=== PATIENT | male | born 1990 | race Caucasian/White ===

== ENCOUNTER 2022-02-24 19:39 | Emergency (ER) | payer SELFPAY ==
[~2022-02-24] VITALS: Ht 175.2 cm; Wt 79.8 kg
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
[2022-02-24 20:03] VITALS: BP 118/69
== END 2022-02-24 20:03 | disposition home or self-care (01) ==
LOC: ER FS 19:43
DX: T63.301A Toxic effect of unspecified spider venom, accidental (unintentional), initial encounter (principal)
CPT/HCPCS: 99283

== ENCOUNTER 2022-04-22 20:13 | Inpatient (IN) | payer SELFPAY ==
[~2022-04-22] VITALS: Ht 177.8 cm; Wt 69.0 kg
[2022-04-22] MEDS ORDERED: fentaNYL INJ 100 MCG/2 ML AMP IVP ONE (20:30)
[2022-04-22 20:36] LABS: BASOPHILS # (AUTO) 0.1 10^3/uL (0.0-0.1); BASOPHILS % (AUTO) 0 % (0-10); EOSINOPHILS % (AUTO) 0 % (0-10); HEMATOCRIT 40 % (40-54); HEMOGLOBIN 14.1 g/dL (13.3-17.7); LYMPHOCYTES % (AUTO) 9 % (12-44); MEAN CORPUSCULAR HEMOGLOBIN 32 pg (25-34); MEAN CORPUSCULAR HGB CONC 35 g/dL (32-36); MEAN CORPUSCULAR VOLUME 91 fL (80-99); MEAN PLATELET VOLUME 10.8 fL (9.0-12.2); MONOCYTES # (AUTO) 2.3 10^3/uL (0.0-1.0); MONOCYTES % (AUTO) 10 % (0-12); NEUTROPHILS # (AUTO) 18.4 10^3/uL (1.8-7.8); NEUTROPHILS % (AUTO) 81 % (42-75); PLATELET COUNT 281 10^3/uL (130-400); WHITE BLOOD COUNT 22.9 10^3/uL (4.3-11.0)
[2022-04-22 20:51] LABS: ALBUMIN 4.3 GM/DL (3.2-4.5); BILIRUBIN,TOTAL 1.8 MG/DL (0.1-1.0); CREATININE SERUM 1.32 MG/DL (0.60-1.30); MAGNESIUM 2.1 MG/DL (1.6-2.4); POTASSIUM 3.7 MMOL/L (3.6-5.0); TOTAL PROTEIN 7.3 GM/DL (6.4-8.2)
[2022-04-22] MEDS ORDERED: LACTATED RINGERS 1,000 ML IV ONE ×2 (21:00)
[2022-04-22 21:26] LABS: BAND NEUTROPHILS 4 %; LYMPHOCYTES % (MANUAL) 9 %; MONOCYTES % (MANUAL) 5 %; NEUTROPHILS % (MANUAL) 82 %; RBC MORPH NORMAL
--- NOTE | 2022-04-22 21:41 | Diagnostic Imaging Report ---
PROCEDURE: CT thoracic spine without contrast. TECHNIQUE: Multiple axial computerized tomography images were obtained from the base of the thoracic spine to the vertex without intravenous contrast. Auto Exposure Controls were utilized during the CT exam to meet ALARA standards for radiation dose reduction. INDICATION: Upper back pain. COMPARISON: None FINDINGS: Static alignment of the thoracic spine is maintained. There is no significant anteroretrolisthesis. There is no evidence of jumped facets. Vertebral body heights are maintained as well. There is no acute fracture. No bony fragments are seen within the spinal canal. Mild multilevel intervertebral disc height loss is noted. Pre and paravertebral soft tissue structures are unremarkable. Included portions of the lungs are clear. IMPRESSION: 1. No acute fracture or dislocation of the thoracic spine. Dictated by: Dictated on workstation # [id number]
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
--- NOTE | 2022-04-22 22:49 | Diagnostic Imaging Report ---
PROCEDURE: CT pelvis with contrast. TECHNIQUE: Oral and intravenous contrast were administered with pelvic CT performed. Auto Exposure Controls were utilized during the CT exam to meet ALARA standards for radiation dose reduction. INDICATION: Rectal pain. COMPARISON: None FINDINGS: Included portions of the small bowel loops are nondistended. Normal appendix is identified. There is stranding of the perirectal fat within the lower posterior pelvis. There is some hyperenhancement of the rectal wall. There is no soft tissue emphysema or pneumoperitoneum. There is no pneumatosis. There is no free fluid nor loculated air-fluid collection. Urinary bladder is unopacified. No calculi are seen within the urinary bladder. No abnormal lymph nodes are identified. Osseous structures show no acute abnormalities. IMPRESSION: 1. Hyperenhancing thickened appearance to the rectal wall with mild stranding of the perirectal fat. Findings are nonspecific, but may be on the basis of proctitis. 2. There is no extraluminal gas or loculated air-fluid collection. Dictated by: Dictated on workstation # [id number]
[2022-04-22] MEDS ORDERED: cefTRIAXone 1 GM PRE-MIX 50 ML IV STA (23:04)
[2022-04-22] MEDS ORDERED: AZITHROMYCIN 250 MG TAB (ZITHROMAX) PO ONE (23:15)
[2022-04-23] VITALS (8 sets, daily range): BP systolic 101–119; BP diastolic 56–69
[2022-04-23 00:17] LABS: PROTHROMBIN TIME PATIENT 13.4 SEC (12.2-14.7)
[2022-04-23] MEDS ORDERED: NS IV 1000 ML 1,000 ML ONE (02:21)
[2022-04-23] MEDS ORDERED: fentaNYL INJ 100 MCG/2 ML AMP IV PRN (02:30)
[2022-04-23] MEDS: metroNIDAZOLE 500 MG/100 ML IVPB (PRE-MIX) IV SCH ×2 (02:31→15:44)
[2022-04-23] MEDS: NS IV 1000 ML 1,000 ML IV SCH ×3 (02:32→17:29)
[2022-04-23 02:38] LABS: BILIRUBIN,URINE NEGATIVE (NEGATIVE); CLARITY,URINE CLEAR; COLOR,URINE YELLOW; GLUCOSE, URINE (UA) NEGATIVE (NEGATIVE); KETONES,URINE 1+ (NEGATIVE); LEUKOCYTE ESTERASE ,URINE NEGATIVE (NEGATIVE); NITRITE,URINE NEGATIVE (NEGATIVE); PROTEIN,URINE NEGATIVE (NEGATIVE)
[2022-04-23 03:08] LABS: BACTERIA,URINE NEGATIVE /HPF
[2022-04-23 05:40] LABS: BASOPHILS # (AUTO) 0.1 10^3/uL (0.0-0.1); BASOPHILS % (AUTO) 1 % (0-10); EOSINOPHILS # (AUTO) 0.2 10^3/uL (0.0-0.3); EOSINOPHILS % (AUTO) 1 % (0-10); HEMATOCRIT 36 % (40-54); HEMOGLOBIN 12.2 g/dL (13.3-17.7); LYMPHOCYTES % (AUTO) 24 % (12-44); MEAN CORPUSCULAR HEMOGLOBIN 32 pg (25-34); MEAN CORPUSCULAR HGB CONC 34 g/dL (32-36); MEAN CORPUSCULAR VOLUME 92 fL (80-99); MEAN PLATELET VOLUME 11.1 fL (9.0-12.2); MONOCYTES # (AUTO) 1.2 10^3/uL (0.0-1.0); MONOCYTES % (AUTO) 9 % (0-12); NEUTROPHILS # (AUTO) 8.1 10^3/uL (1.8-7.8); NEUTROPHILS % (AUTO) 65 % (42-75); PLATELET COUNT 227 10^3/uL (130-400); WHITE BLOOD COUNT 12.5 10^3/uL (4.3-11.0)
[2022-04-23 05:57] LABS: ALBUMIN 3.5 GM/DL (3.2-4.5); POTASSIUM 3.7 MMOL/L (3.6-5.0)
[2022-04-23 05:58] LABS: CALCIUM 8.2 MG/DL (8.5-10.1)
[2022-04-23 06:00] LABS: TOTAL PROTEIN 6.1 GM/DL (6.4-8.2)
[2022-04-23 06:01] LABS: BILIRUBIN,TOTAL 1.7 MG/DL (0.1-1.0)
[2022-04-23 06:03] LABS: CREATININE SERUM 0.99 MG/DL (0.60-1.30)
[2022-04-23] MEDS ORDERED: CATHETER FLUSH 10 ML SYR IVP PRN (06:45)
[2022-04-23 08:04] LABS: BENZODIAZEPINES SCREEN URINE NEGATIVE (NEGATIVE); COCAINE SCREEN URINE NEGATIVE (NEGATIVE)
[2022-04-23 08:05] LABS: AMPHETAMINE SCREEN, URINE POSITIVE (NEGATIVE); BARBITURATE SCREEN URINE NEGATIVE (NEGATIVE); CANNABINOID SCREEN, URINE POSITIVE (NEGATIVE); METHADONE STAT NEGATIVE (NEGATIVE); OPIATE SCREEN URINE NEGATIVE (NEGATIVE); OXYCODONE STAT NEGATIVE (NEGATIVE); PROPOXYPHENE STAT NEGATIVE (NEGATIVE); TRICYCLIC ANTIDEPRESSANTS SCRE NEGATIVE (NEGATIVE)
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
[2022-04-23] MEDS: HYDROcodone/APAP 5 MG/325 MG (LORTAB) TAB PO PRN (17:39)
[2022-04-23] MEDS ORDERED: cefTRIAXone 1 GM/50 ML (PRE-MIX) IV SCH (21:00)
[2022-04-24] VITALS: BP 108/56
[2022-04-24] MEDS: NS IV 1000 ML 1,000 ML IV SCH ×3 (01:26→09:20)
[2022-04-24] MEDS: HYDROcodone/APAP 5 MG/325 MG (LORTAB) TAB PO PRN (01:34)
[2022-04-24 04:03] VITALS: BP 113/65
[2022-04-24] MEDS: metroNIDAZOLE 500 MG/100 ML IVPB (PRE-MIX) IV SCH (04:03)
[2022-04-24 06:41] LABS: HEMATOCRIT 34 % (40-54); HEMOGLOBIN 11.6 g/dL (13.3-17.7); MEAN CORPUSCULAR HEMOGLOBIN 32 pg (25-34); MEAN CORPUSCULAR HGB CONC 34 g/dL (32-36); MEAN CORPUSCULAR VOLUME 94 fL (80-99); MEAN PLATELET VOLUME 11.4 fL (9.0-12.2); PLATELET COUNT 191 10^3/uL (130-400); WHITE BLOOD COUNT 6.4 10^3/uL (4.3-11.0)
[2022-04-24 07:02] LABS: POTASSIUM 3.7 MMOL/L (3.6-5.0)
[2022-04-24 07:07] LABS: CREATININE SERUM 0.74 MG/DL (0.60-1.30)
[2022-04-24 08:13] VITALS: BP 109/67
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
[2022-04-24 12:00] VITALS: BP 107/62
[2022-04-24] MEDS ORDERED: DOXY100T2 PO (13:11)
[2022-04-24] MEDS ORDERED: BICT1TAB3 PO (13:11)
--- NOTE | 2022-04-24 13:15 | Discharge Inst-Simple/Standard ---
Discharge Inst-Standard Discharge Medications New, Converted or Re-Newed RX: Transmitted to Pharmacy Patient Instructions/Follow Up Plan of Care/Instructions/FU: Please continue to take your medications as written and keep your appointment with Dr. Underwood to follow-up this hospital stay. Please abstain from further substance abuse. Please remain in isolation until you are contacted by the state to leave isolation with your Monkeypox results. Activity as Tolerated: Yes Discharge Diet: No Restrictions Return to The Hospital For: Chest pain, shortness of breath, fever, weakness, if you feel you are getting worse. HERMAN ESTRELLA MD Apr 24, 2022 13:15
[2022-04-24 15:47] VITALS: BP 114/62
[2022-04-24 16:10] VITALS: BP 114/62
== END 2022-04-24 16:10 | disposition home or self-care (01) | DRG 558 ==
LOC: ER 20:13 → 4TH 04-23 01:08
PROVIDERS: ADMIT Internal Medicine; ATTEND Internal Medicine
PROC: 8E0ZXY6 Isolation (ICD-10-PCS; principal; 2022-04-23)
DX: M62.82 Rhabdomyolysis (principal); N17.9 Acute kidney failure, unspecified; R21 Rash and other nonspecific skin eruption; K62.89 Other specified diseases of anus and rectum; L73.9 Follicular disorder, unspecified; F15.10 Other stimulant abuse, uncomplicated; F12.10 Cannabis abuse, uncomplicated; F17.210 Nicotine dependence, cigarettes, uncomplicated; Z28.310 Unvaccinated for COVID-19; Z28.9 Immunization not carried out for unspecified reason; Z28.39 Other underimmunization status; M54.6 Pain in thoracic spine; Z88.8 Allergy status to other drugs, medicaments and biological substances
CPT/HCPCS: 36415; 72128; 72193; 80048; 80053; 80306; 81000; 82550; 83605; 83735; 85007; 85025; 85027; 85610; 85730; 86141; 86701; 87040; 87205; 87491; 87591

== ENCOUNTER → 2022-04-23 | Outpatient (CLI) | payer SELFPAY ==
[~2022-04-23] MED LIST: BICT1TAB3 PO; DOXY100T2 PO
== END ==
LOC: FNS 15:08
PROVIDERS: ATTEND Emergency Medicine
DX: Z02.89 Encounter for other administrative examinations (principal)

== ENCOUNTER 2022-06-02 18:31 | Emergency (ER) | payer SELFPAY ==
[~2022-06-02] VITALS: Ht 174 cm; Wt 72.5 kg
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
[2022-06-02] MEDS ORDERED: ONDANSETRON 4 MG/2 ML (SDV) Z0FRAN IVP ONE (18:45)
[2022-06-02] MEDS ORDERED: LACTATED RINGERS 1,000 ML IV ONE ×2 (18:45→20:00)
[2022-06-02 18:58] LABS: BASOPHILS # (AUTO) 0.1 10^3/uL (0.0-0.1); BASOPHILS % (AUTO) 0 % (0-10); EOSINOPHILS % (AUTO) 0 % (0-10); HEMATOCRIT 53 % (40-54); HEMOGLOBIN 18.9 g/dL (13.3-17.7); LYMPHOCYTES # (AUTO) 3.8 10^3/uL (1.0-4.0); LYMPHOCYTES % (AUTO) 14 % (12-44); MEAN CORPUSCULAR HEMOGLOBIN 32 pg (25-34); MEAN CORPUSCULAR HGB CONC 35 g/dL (32-36); MEAN CORPUSCULAR VOLUME 91 fL (80-99); MEAN PLATELET VOLUME 11.3 fL (9.0-12.2); MONOCYTES # (AUTO) 2.5 10^3/uL (0.0-1.0); MONOCYTES % (AUTO) 9 % (0-12); NEUTROPHILS # (AUTO) 21.1 10^3/uL (1.8-7.8); NEUTROPHILS % (AUTO) 76 % (42-75); PLATELET COUNT 310 10^3/uL (130-400); WHITE BLOOD COUNT 27.8 10^3/uL (4.3-11.0)
[2022-06-02 19:14] LABS: ALBUMIN 6.2 GM/DL (3.2-4.5); CHLORIDE 86 MMOL/L (98-107); POTASSIUM 3.8 MMOL/L (3.6-5.0); SODIUM 134 MMOL/L (135-145)
[2022-06-02 19:15] LABS: CALCIUM 11.8 MG/DL (8.5-10.1)
[2022-06-02 19:16] LABS: AMYLASE 155 U/L (25-125); GLUCOSE 129 MG/DL (70-105)
[2022-06-02 19:17] LABS: CARBON DIOXIDE 15 MMOL/L (21-32); TOTAL PROTEIN 11.3 GM/DL (6.4-8.2)
[2022-06-02 19:18] LABS: BILIRUBIN,TOTAL 1.8 MG/DL (0.1-1.0)
[2022-06-02 19:20] LABS: ALKALINE PHOSPHATASE 102 U/L (40-136); CREATININE SERUM 7.52 MG/DL (0.60-1.30); GFR ESTIMATED 9
[2022-06-02 19:21] LABS: ACETAMINOPHEN < 10 UG/ML (10-30)
[2022-06-02 19:23] LABS: ALANINE AMINOTRANSFERASE 41 U/L (0-55); MAGNESIUM 2.1 MG/DL (1.6-2.4)
[2022-06-02 19:25] LABS: LIPASE 37 U/L (8-78)
[2022-06-02] MEDS ORDERED: CEFEPIME INJECTION 1,000 MG in NS (IVPB) 50 ML IV ONE (20:00)
[2022-06-02 20:23] LABS: CREATINE KINASE 10464 U/L (30-200)
--- NOTE | 2022-06-02 20:34 | Diagnostic Imaging Report ---
INDICATION: Dehydration. Pain. EXAMINATION: Chest, 06/02/2022. FINDINGS: The cardiomediastinal silhouette is unremarkable. The pulmonary vasculature is within normal limits. The lungs and pleural spaces are clear. IMPRESSION: No evidence of an acute cardiopulmonary process. Dictated by: Dictated on workstation # [id number]
[2022-06-02 21:00] LABS: BUN/CREATININE RATIO 7
[2022-06-02 21:04] LABS: BAND NEUTROPHILS 3 %; LYMPHOCYTES % (MANUAL) 17 %; MONOCYTES % (MANUAL) 3 %; NEUTROPHILS % (MANUAL) 77 %
[2022-06-02 21:05] LABS: RBC MORPH NORMAL
--- NOTE | 2022-06-02 21:06 | Diagnostic Imaging Report ---
INDICATION: Dehydration. Overheated. Nausea. Constipation. EXAMINATION: CT chest, abdomen and pelvis without contrast, 06/02/2022. All CT scans use one or more of the following dose optimizing techniques: automated exposure control, MA and/or KvP adjustment based on patient size and exam type or iterative reconstruction. COMPARISON: 04/22/2022. FINDINGS: CT CHEST: There is no mediastinal or hilar adenopathy. There is no pericardial or pleural effusion. Lungs clear. No pneumothorax. There is no acute osseous abnormality. CT ABDOMEN/PELVIS: Nonopacified liver and spleen normal. Multiple stones noted within the gallbladder without surrounding inflammatory change. The adrenal glands and pancreas are normal. There is no nephrolithiasis or hydronephrosis. There are findings of moderate constipation. Appendix normal. No surrounding inflammatory change. There is no ascites. No free air. Nonspecific midline calcification noted within the penis. This may be of no significance. Correlate with any clinical symptoms. There is wall thickening of the urinary bladder which could be due to underdistention with cystitis not excluded. There is no acute osseous abnormality. IMPRESSION: 1. Wall thickening of the urinary bladder either due to underdistention or cystitis, correlate clinically. Otherwise incidental findings as detailed above. This includes changes of moderate constipation. 2. Cholelithiasis. 3. No acute process in the chest. Dictated by: Dictated on workstation # [id number]
[2022-06-02 21:20] LABS: BILIRUBIN,URINE 2+ (NEGATIVE); CLARITY,URINE CLOUDY; COLOR,URINE DARK YELLOW; GLUCOSE, URINE (UA) NEGATIVE (NEGATIVE); KETONES,URINE TRACE (NEGATIVE); LEUKOCYTE ESTERASE ,URINE NEGATIVE (NEGATIVE); NITRITE,URINE NEGATIVE (NEGATIVE); PROTEIN,URINE 3+ (NEGATIVE)
[2022-06-02 21:31] LABS: AMPHETAMINE SCREEN, URINE POSITIVE (NEGATIVE); BENZODIAZEPINES SCREEN URINE NEGATIVE (NEGATIVE); COCAINE SCREEN URINE NEGATIVE (NEGATIVE)
[2022-06-02 21:32] LABS: BARBITURATE SCREEN URINE NEGATIVE (NEGATIVE); CANNABINOID SCREEN, URINE NEGATIVE (NEGATIVE); METHADONE STAT NEGATIVE (NEGATIVE); OPIATE SCREEN URINE NEGATIVE (NEGATIVE); OXYCODONE STAT NEGATIVE (NEGATIVE); PROPOXYPHENE STAT NEGATIVE (NEGATIVE); TRICYCLIC ANTIDEPRESSANTS SCRE NEGATIVE (NEGATIVE)
[2022-06-02 21:50] LABS: BACTERIA,URINE LARGE /HPF; CALCIUM OXALATE CRYSTALS,UR FEW /LPF; RBC,URINE RARE /HPF
[2022-06-02] MEDS ORDERED: LORazepam INJ 2 MG/ML (ATIVAN) VIAL IVP ONE (22:00)
[2022-06-02 23:45] VITALS: BP 110/82
== END 2022-06-02 23:45 | disposition short-term general hospital (02) ==
LOC: EDUNIT# 18:31 → ER 18:33
DX: U07.1 COVID-19 (principal); A41.9 Sepsis, unspecified organism; N17.9 Acute kidney failure, unspecified; F15.90 Other stimulant use, unspecified, uncomplicated; M62.82 Rhabdomyolysis; Z28.310 Unvaccinated for COVID-19
CPT/HCPCS: 71045; 71250; 74176; 80053; 80306; 81000; 82150; 82550; 82553; 83605; 83690; 83735; 83874; 84145; 84484; 85007; 85027; 87040; 87088; 87636; 93005; 93041; 99284; G0480 ×2; 36415; 80320; 80329

== ENCOUNTER 2022-06-19 12:42 | Emergency (ER) | payer SELFPAY ==
[~2022-06-19] VITALS: Ht 175 cm; Wt 72.0 kg
[2022-06-19] MEDS ORDERED: LIDOCAINE/EPI 2% 1:100,00 (XYLOCAINE) 20 ML VIAL INJ ONE (13:30)
[2022-06-19] MEDS ORDERED: LIDOCAINE/EPI 2% 1:200,00 (XYLOCAINE) 10 ML VIAL ONE (13:37)
[2022-06-19 13:42] LABS: BASOPHILS # (AUTO) 0.1 10^3/uL (0.0-0.1); BASOPHILS % (AUTO) 1 % (0-10); EOSINOPHILS # (AUTO) 0.2 10^3/uL (0.0-0.3); EOSINOPHILS % (AUTO) 2 % (0-10); HEMATOCRIT 35 % (40-54); HEMOGLOBIN 11.8 g/dL (13.3-17.7); LYMPHOCYTES % (AUTO) 28 % (12-44); MEAN CORPUSCULAR HEMOGLOBIN 32 pg (25-34); MEAN CORPUSCULAR HGB CONC 34 g/dL (32-36); MEAN CORPUSCULAR VOLUME 94 fL (80-99); MEAN PLATELET VOLUME 10.9 fL (9.0-12.2); MONOCYTES # (AUTO) 0.7 10^3/uL (0.0-1.0); MONOCYTES % (AUTO) 10 % (0-12); NEUTROPHILS # (AUTO) 4.1 10^3/uL (1.8-7.8); NEUTROPHILS % (AUTO) 59 % (42-75); PLATELET COUNT 225 10^3/uL (130-400)
[2022-06-19 13:52] LABS: ALBUMIN 3.8 GM/DL (3.2-4.5)
[2022-06-19 13:53] LABS: POTASSIUM 3.4 MMOL/L (3.6-5.0)
[2022-06-19 13:54] LABS: CALCIUM 8.6 MG/DL (8.5-10.1)
[2022-06-19 13:55] LABS: TOTAL PROTEIN 6.4 GM/DL (6.4-8.2)
[2022-06-19 13:57] LABS: BILIRUBIN,TOTAL 0.8 MG/DL (0.1-1.0)
[2022-06-19 13:59] LABS: CREATININE SERUM 0.93 MG/DL (0.60-1.30)
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
[2022-06-19] MEDS ORDERED: LACTATED RINGERS 1,000 ML IV ONE (17:45)
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
[2022-06-19] MEDS ORDERED: ONDA4TAB11 PO (18:46)
[2022-06-19] MEDS ORDERED: AMOX1TAB12 PO (18:46)
[2022-06-19 19:15] VITALS: BP 136/88
== END 2022-06-19 19:15 | disposition home or self-care (01) ==
LOC: EDUNIT# 12:42 → ER 12:43
DX: S06.0X0A Concussion without loss of consciousness, initial encounter (principal); S01.01XA Laceration without foreign body of scalp, initial encounter; R74.8 Abnormal levels of other serum enzymes; F17.200 Nicotine dependence, unspecified, uncomplicated; Z28.310 Unvaccinated for COVID-19; Y04.8XXA Assault by other bodily force, initial encounter
CPT/HCPCS: 36415; 70450; 72125; 80053; 82550; 85025

== ENCOUNTER 2022-07-06 15:09 | Emergency (ER) | payer OTHER ==
[~2022-07-06 15:09] MED LIST changes: +AMOX1TAB12 PO; +ONDA4TAB11 PO
[2022-07-06 15:15] VITALS: BP 132/86
== END 2022-07-06 15:20 | disposition home or self-care (01) ==
LOC: EDUNIT# 15:09 → ER FS 15:11
DX: S01.01XD Laceration without foreign body of scalp, subsequent encounter (principal); Z28.310 Unvaccinated for COVID-19; X58.XXXD Exposure to other specified factors, subsequent encounter

== ENCOUNTER 2022-07-30 04:50 | Emergency (ER) | payer OTHER ==
[~2022-07-30] VITALS: Ht 175.3 cm; Wt 68.0 kg
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
--- NOTE | 2022-07-30 07:30 | Diagnostic Imaging Report ---
CLINICAL INDICATIONS: Patient status post fall with bilateral knee pain. EXAM: X-ray of both knees multiple views including sunrise view. COMPARISON: None. FINDINGS: X-ray of both knees show no acute fracture dislocation. There is no knee effusion. There is curvilinear sclerotic areas involving the distal femoral diametaphysis bilaterally which may be related to bone infarcts. [place] view of both patellas show them to be appropriately located. There is mild medial compartment narrowing bilaterally. IMPRESSION: 1: There is no acute fracture or dislocation involving both knees. 2: There are sclerotic areas involving the distal aspects of both femoral diametaphyseal regions which may represent bone infarcts. Dictated by: Dictated on workstation # [id number]
[2022-07-30 07:49] VITALS: BP 115/74
== END 2022-07-30 07:49 | disposition home or self-care (01) ==
LOC: EDUNIT# 04:50 → ER 04:52
DX: M25.562 Pain in left knee (principal); M25.561 Pain in right knee; F17.210 Nicotine dependence, cigarettes, uncomplicated; Z28.310 Unvaccinated for COVID-19; W23.0XXA Caught, crushed, jammed, or pinched between moving objects, initial encounter; W17.89XA Other fall from one level to another, initial encounter; Y93.01 Activity, walking, marching and hiking

== ENCOUNTER 2023-01-11 20:15 | Emergency (ER) | payer OTHER ==
[~2023-01-11] VITALS: Ht 175 cm; Wt 74.8 kg
[2023-01-11] MEDS ORDERED: KETOROLAC 30 MG/ML VIAL IVP STA (21:16)
[2023-01-11] MEDS ORDERED: ORPHENADRINE 60 MG/2 ML (NORFLEX) AMP (ED ONLY) IVP STA (21:16)
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
--- NOTE | 2023-01-11 21:35 | Diagnostic Imaging Report ---
PROCEDURE: CT head and maxillofacial without contrast. TECHNIQUE: Multiple contiguous axial images were obtained through the head and facial bones without the use of intravenous contrast. Auto Exposure Controls were utilized during the CT exam to meet ALARA standards for radiation dose reduction. 3D reformatted images of the facial bones were obtained on a separate workstation. INDICATION: Headache and face pain. No acute intracranial hemorrhage. The dumont-white matter differentiation is preserved. The ventricles and cortical sulci are normal. No intracranial mass or fluid collection. No midline shift or mass effect. The sella is normal. The cisterns are normal. The paranasal sinuses and mastoids are clear. The skull is intact. Acute displaced fracture of the right nasal bone. Leftward nasal septal deviation. No nasoseptal hematoma. The maxilla and zygomatic arch are normal. The pterygoid plates are intact. The mandible is intact. Multifocal periodontal disease with numerous dental cavities and periapical lucencies. IMPRESSION: Acute displaced fracture of the right nasal bone. No other facial fractures identified. No acute intracranial hemorrhage. No large vascular territory xie-white loss. No intracranial mass, midline shift, or hydrocephalus. Dictated by: Dictated on workstation # [id number]
[2023-01-11] MEDS ORDERED: TRM50T PO (21:51)
[2023-01-11] MEDS ORDERED: AMOX1TAB12 PO (21:51)
[2023-01-11] MEDS ORDERED: IBUP-1780 PO (21:51)
[2023-01-11] MEDS ORDERED: cefTRIAXone IV/IM 1,000 MG in NS (IVPB) 50 ML IV STA (21:55)
[2023-01-11 22:35] VITALS: BP 135/71
== END 2023-01-11 22:35 | disposition home or self-care (01) ==
LOC: EDUNIT# 20:15 → ER FS 20:15
DX: S02.2XXA Fracture of nasal bones, initial encounter for closed fracture (principal); K04.7 Periapical abscess without sinus; K02.9 Dental caries, unspecified; F17.210 Nicotine dependence, cigarettes, uncomplicated; Z28.310 Unvaccinated for COVID-19; X58.XXXA Exposure to other specified factors, initial encounter
CPT/HCPCS: 70450; 70486

== ENCOUNTER 2023-02-10 00:02 | Emergency (ER) | payer SELFPAY ==
[~2023-02-10] VITALS: Ht 172 cm; Wt 81.0 kg
[~2023-02-10 00:02] MED LIST changes: +IBUP-1780 PO; +TRM50T PO
[2023-02-10 00:05] VITALS: BP 125/76
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
== END 2023-02-10 00:30 | disposition home or self-care (01) ==
LOC: ER 00:02
DX: Z77.098 Contact with and (suspected) exposure to other hazardous, chiefly nonmedicinal, chemicals (principal); F17.210 Nicotine dependence, cigarettes, uncomplicated; Z28.310 Unvaccinated for COVID-19

== ENCOUNTER 2023-03-06 10:41 | Emergency (ER) | payer SELFPAY ==
[~2023-03-06] VITALS: Ht 172 cm; Wt 77.0 kg
[2023-03-06] MEDS ORDERED: morphine INJ 10 MG/ML 1ML (SYR OR VIAL) IVP STA ×3 (11:02→16:57)
[2023-03-06 11:14] LABS: BASOPHILS # (AUTO) 0.1 10^3/uL (0.0-0.1); BASOPHILS % (AUTO) 1 % (0-10); EOSINOPHILS % (AUTO) 0 % (0-10); HEMATOCRIT 38 % (40-54); HEMOGLOBIN 12.4 g/dL (13.3-17.7); LYMPHOCYTES # (AUTO) 6.2 10^3/uL (1.0-4.0); LYMPHOCYTES % (AUTO) 53 % (12-44); MEAN CORPUSCULAR HEMOGLOBIN 31 pg (25-34); MEAN CORPUSCULAR HGB CONC 33 g/dL (32-36); MEAN CORPUSCULAR VOLUME 94 fL (80-99); MEAN PLATELET VOLUME 9.7 fL (9.0-12.2); MONOCYTES # (AUTO) 0.9 10^3/uL (0.0-1.0); MONOCYTES % (AUTO) 8 % (0-12); NEUTROPHILS # (AUTO) 4.4 10^3/uL (1.8-7.8); NEUTROPHILS % (AUTO) 38 % (42-75); PLATELET COUNT 332 10^3/uL (130-400); WHITE BLOOD COUNT 11.7 10^3/uL (4.3-11.0)
[2023-03-06 11:23] LABS: ALBUMIN 3.3 GM/DL (3.2-4.5); CHLORIDE 99 MMOL/L (98-107); POTASSIUM 3.2 MMOL/L (3.6-5.0); SODIUM 134 MMOL/L (135-145)
[2023-03-06 11:25] LABS: CALCIUM 8.5 MG/DL (8.5-10.1)
[2023-03-06 11:26] LABS: AMPHETAMINE SCREEN, URINE POSITIVE (NEGATIVE); BARBITURATE SCREEN URINE NEGATIVE (NEGATIVE); BENZODIAZEPINES SCREEN URINE NEGATIVE (NEGATIVE); CANNABINOID SCREEN, URINE NEGATIVE (NEGATIVE); COCAINE SCREEN URINE NEGATIVE (NEGATIVE); METHADONE STAT NEGATIVE (NEGATIVE); OPIATE SCREEN URINE NEGATIVE (NEGATIVE); OXYCODONE STAT NEGATIVE (NEGATIVE); PROPOXYPHENE STAT NEGATIVE (NEGATIVE); TRICYCLIC ANTIDEPRESSANTS SCRE NEGATIVE (NEGATIVE)
[2023-03-06 11:26] LABS: GLUCOSE 102 MG/DL (70-105); TOTAL PROTEIN 6.7 GM/DL (6.4-8.2)
[2023-03-06 11:27] LABS: CARBON DIOXIDE 27 MMOL/L (21-32)
[2023-03-06 11:28] LABS: BILIRUBIN,TOTAL 0.4 MG/DL (0.1-1.0)
[2023-03-06 11:29] LABS: PROTHROMBIN TIME PATIENT 13.7 SEC (12.2-14.7)
[2023-03-06 11:30] LABS: ALKALINE PHOSPHATASE 104 U/L (40-136); CREATININE SERUM 0.81 MG/DL (0.60-1.30); GFR ESTIMATED 119
[2023-03-06 11:31] LABS: BUN/CREATININE RATIO 9
[2023-03-06 11:32] LABS: SALICYLATE < 5.0 MG/DL (5.0-20.0)
[2023-03-06 11:33] LABS: ALANINE AMINOTRANSFERASE 18 U/L (0-55)
[2023-03-06 11:34] LABS: ACETAMINOPHEN < 10 UG/ML (10-30)
[2023-03-06 11:53] LABS: TSH (THYROID ANALYZER) 0.34 UIU/ML (0.35-4.94)
[2023-03-06] MEDS ORDERED: IOHEXOL 350 MG/ML 100 ML (OMNIPAQUE 350) VIAL IV ONE (12:45)
[2023-03-06] MEDS ORDERED: HOLD METFORMIN - RECEIVED CONTRAST 20 ML VIAL IV SCH (12:45)
[2023-03-06] MEDS ORDERED: NS 100 ML (IVPB) BAG IV ONE (12:45)
--- NOTE | 2023-03-06 13:21 | Diagnostic Imaging Report ---
PROCEDURE: CT right upper extremity with contrast. TECHNIQUE: Axial images were obtained through the right upper extremity after intravenous contrast and reformatted into coronal and sagittal oblique planes. Auto Exposure Controls were utilized during the CT exam to meet ALARA standards for radiation dose reduction. INDICATION: Finger abscess. Arm pain COMPARISON: None available. FINDINGS: No soft tissue gas within the right hand, wrist, forearm or upper arm. No appreciable fluid collection by CT. There is focal soft tissue swelling in the volar aspect of the index finger that could represent reported abscess. However, CT of the entire upper extremity does not adequately evaluate this area. No fracture or erosions. Specifically, there are no erosions appreciated within the index finger, although large [id number] is suboptimal in assessment. IMPRESSION: 1. No soft tissue gas in the right upper extremities to suggest necrotizing fasciitis. 2. Focal soft tissue on the volar surface of the index finger may be related to patient's reported abscess. This exam cannot determine if there is fluid for drainage, and ultrasound could be performed if this is of clinical concern. 3. No CT features of osteomyelitis. Dictated by: Dictated on workstation # [id number]
[2023-03-06] MEDS ORDERED: LIDOCAINE 1% INJ 20 ML VIAL INJ ONE (13:45)
[2023-03-06] MEDS ORDERED: PIPERACILLIN SODIUM/TAZOBACTAM 4.5 GM in NS (IVPB) 100 ML IV ONE (15:00)
[2023-03-06] MEDS ORDERED: VANCOMYCIN INJECTION 750 MG in NS (IVPB) 250 ML IV SCH (15:00)
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
[2023-03-06] MEDS ORDERED: LACTATED RINGERS 1,000 ML IV ONE (15:30)
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
[2023-03-06 18:35] VITALS: BP 137/96
== END 2023-03-06 18:35 | disposition short-term general hospital (02) ==
LOC: EDUNIT# 10:41 → ER 10:43
DX: M65.841 Other synovitis and tenosynovitis, right hand (principal); L08.9 Local infection of the skin and subcutaneous tissue, unspecified; F15.10 Other stimulant abuse, uncomplicated; R60.0 Localized edema; F17.210 Nicotine dependence, cigarettes, uncomplicated; Z59.00 Homelessness unspecified; Z28.310 Unvaccinated for COVID-19
CPT/HCPCS: 73201; 80053; 80306; 83605; 84439; 84443; 85025; 85610; 85730; 86141; 87040; 99284; G0480 ×3; 36415; 80320; 80329

== ENCOUNTER 2023-04-22 21:14 | Emergency (ER) | payer SELFPAY ==
[~2023-04-22] VITALS: Ht 175 cm; Wt 75.6 kg
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
[2023-04-22] MEDS ORDERED: diphenhydrAMINE INJ 50 MG/ML VIAL IVP ONE (21:30)
[2023-04-22] MEDS ORDERED: PROCHLORPERAZINE 10 MG/2ML INJ (COMPAZINE) IV ONE (21:30)
[2023-04-22] MEDS ORDERED: KETOROLAC INJ 15 MG/ML VIAL IVP ONE (21:30)
[2023-04-22] MEDS ORDERED: NS IV 1000 ML 1,000 ML IV SCH (21:30)
[2023-04-22 22:41] LABS: BILIRUBIN,URINE NEGATIVE (NEGATIVE); CLARITY,URINE CLEAR; COLOR,URINE YELLOW; GLUCOSE, URINE (UA) NEGATIVE (NEGATIVE); KETONES,URINE NEGATIVE (NEGATIVE); LEUKOCYTE ESTERASE ,URINE NEGATIVE (NEGATIVE); NITRITE,URINE NEGATIVE (NEGATIVE); PH,URINE 6.5 (5-9); PROTEIN,URINE NEGATIVE (NEGATIVE)
[2023-04-22 22:49] LABS: AMORPHOUS SEDIMENT,UR MOD AMOR PHOSPHATE /LPF; BACTERIA,URINE NEGATIVE /HPF; SQUAMOUS EPITHELIAL CELL,UR 0-2 /HPF; WBC,URINE RARE /HPF
[2023-04-22 22:51] LABS: AMPHETAMINE SCREEN, URINE NEGATIVE (NEGATIVE); BARBITURATE SCREEN URINE NEGATIVE (NEGATIVE); BENZODIAZEPINES SCREEN URINE NEGATIVE (NEGATIVE); CANNABINOID SCREEN, URINE NEGATIVE (NEGATIVE); COCAINE SCREEN URINE NEGATIVE (NEGATIVE); METHADONE STAT NEGATIVE (NEGATIVE); OPIATE SCREEN URINE NEGATIVE (NEGATIVE); OXYCODONE STAT NEGATIVE (NEGATIVE); PROPOXYPHENE STAT NEGATIVE (NEGATIVE); TRICYCLIC ANTIDEPRESSANTS SCRE NEGATIVE (NEGATIVE)
[2023-04-22 23:00] VITALS: BP 99/57
== END 2023-04-22 23:00 | disposition home or self-care (01) ==
LOC: EDUNIT# 21:14 → ER FS 21:15
DX: G44.209 Tension-type headache, unspecified, not intractable (principal); F17.210 Nicotine dependence, cigarettes, uncomplicated; Z28.310 Unvaccinated for COVID-19
CPT/HCPCS: 80306; 81000

== ENCOUNTER 2023-04-24 13:58 | Emergency (ER) | payer SELFPAY ==
[2023-04-24 13:58] VITALS: BP 91/57
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
[2023-04-25] MEDS ORDERED: ONDA4TAB11 PO (13:15)
[2023-04-25] MEDS ORDERED: IBUP-1780 PO (13:15)
[2023-04-25] MEDS ORDERED: AMOX875T2 PO (13:15)
[2023-04-25] MEDS ORDERED: LIDO15SO3 MM (13:15)
== END 2023-04-24 14:10 | disposition left against medical advice (07) ==
LOC: EDUNIT# 13:58 → ER FS 13:59
DX: K02.9 Dental caries, unspecified (principal); K05.10 Chronic gingivitis, plaque induced; B34.9 Viral infection, unspecified; R50.9 Fever, unspecified; R09.81 Nasal congestion; F17.210 Nicotine dependence, cigarettes, uncomplicated; Z28.310 Unvaccinated for COVID-19
CPT/HCPCS: 99283

== ENCOUNTER 2023-04-25 10:32 | Emergency (ER) | payer SELFPAY ==
[~2023-04-25] VITALS: Ht 175.3 cm; Wt 74.5 kg
[2023-04-25 10:36] VITALS: BP 105/66
[2023-04-25] MEDS ORDERED: ACETAMINOPHEN 325 MG/10.15 ML ORAL SOLN UDC PO STA (10:50)
[2023-04-25] MEDS ORDERED: ONDANSETRON INJECTION 4 MG/2 ML (SDV) IVP STA ×2 (10:50→12:33)
[2023-04-25] MEDS ORDERED: NS IV 1000 ML 1,000 ML IV STA (10:50)
[2023-04-25] MEDS ORDERED: KETOROLAC INJ 15 MG/ML VIAL IVP STA (10:50)
[2023-04-25 11:07] LABS: BASOPHILS % (AUTO) 1 % (0-10); EOSINOPHILS % (AUTO) 1 % (0-10); HEMATOCRIT 33 % (40-54); HEMOGLOBIN 10.6 g/dL (13.3-17.7); LYMPHOCYTES # (AUTO) 3.7 10^3/uL (1.0-4.0); LYMPHOCYTES % (AUTO) 64 % (12-44); MEAN CORPUSCULAR HEMOGLOBIN 29 pg (25-34); MEAN CORPUSCULAR HGB CONC 33 g/dL (32-36); MEAN CORPUSCULAR VOLUME 88 fL (80-99); MEAN PLATELET VOLUME 9.3 fL (9.0-12.2); MONOCYTES # (AUTO) 1.9 10^3/uL (0.0-1.0); MONOCYTES % (AUTO) 33 % (0-12); NEUTROPHILS # (AUTO) 0.1 10^3/uL (1.8-7.8); NEUTROPHILS % (AUTO) 1 % (42-75); PLATELET COUNT 228 10^3/uL (130-400); WHITE BLOOD COUNT 5.8 10^3/uL (4.3-11.0)
[2023-04-25 11:27] LABS: ALBUMIN 3.3 GM/DL (3.2-4.5); BILIRUBIN,TOTAL 0.5 MG/DL (0.1-1.0); CALCIUM 8.7 MG/DL (8.5-10.1); CREATININE SERUM 0.79 MG/DL (0.60-1.30); POTASSIUM 4.2 MMOL/L (3.6-5.0)
[2023-04-25 11:35] LABS: LYMPHOCYTES % (MANUAL) 70 %; MONOCYTES % (MANUAL) 29 %; NEUTROPHILS % (MANUAL) 1 %
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
[2023-04-25 12:15] LABS: BILIRUBIN,URINE NEGATIVE (NEGATIVE); CLARITY,URINE CLEAR; GLUCOSE, URINE (UA) NEGATIVE (NEGATIVE); KETONES,URINE NEGATIVE (NEGATIVE); LEUKOCYTE ESTERASE ,URINE NEGATIVE (NEGATIVE); NITRITE,URINE NEGATIVE (NEGATIVE); PROTEIN,URINE 2+ (NEGATIVE)
[2023-04-25 12:22] LABS: BACTERIA,URINE TRACE /HPF; COLOR,URINE DARK YELLOW
[2023-04-25 12:30] LABS: AMPHETAMINE SCREEN, URINE NEGATIVE (NEGATIVE); BARBITURATE SCREEN URINE NEGATIVE (NEGATIVE); BENZODIAZEPINES SCREEN URINE NEGATIVE (NEGATIVE); CANNABINOID SCREEN, URINE NEGATIVE (NEGATIVE); COCAINE SCREEN URINE NEGATIVE (NEGATIVE); METHADONE STAT NEGATIVE (NEGATIVE); OPIATE SCREEN URINE NEGATIVE (NEGATIVE); OXYCODONE STAT NEGATIVE (NEGATIVE); PROPOXYPHENE STAT NEGATIVE (NEGATIVE); TRICYCLIC ANTIDEPRESSANTS SCRE NEGATIVE (NEGATIVE)
[2023-04-25] MEDS ORDERED: dexAMETHasone INJ 10 MG/ML 1 ML VIAL IV STA (12:31)
[2023-04-25] MEDS ORDERED: cefTRIAXone IV/IM 1,000 MG in NS (IVPB) 50 ML 50 ML IV STA (12:31)
[2023-04-25] MEDS ORDERED: IBUP-1780 PO (13:15)
[2023-04-25] MEDS ORDERED: ONDA4TAB11 PO (13:15)
[2023-04-25] MEDS ORDERED: AMOX875T2 PO (13:15)
[2023-04-25] MEDS ORDERED: LIDO15SO3 MM (13:15)
== END 2023-04-25 13:55 | disposition home or self-care (01) ==
LOC: EDUNIT# 10:32 → ER FS 10:34
DX: J02.9 Acute pharyngitis, unspecified (principal); R79.82 Elevated C-reactive protein (CRP); R11.2 Nausea with vomiting, unspecified; F17.290 Nicotine dependence, other tobacco product, uncomplicated; F17.210 Nicotine dependence, cigarettes, uncomplicated; Z28.310 Unvaccinated for COVID-19
CPT/HCPCS: 36415; 80053; 80306; 81000; 83605; 85007; 85027; 86141; 86308; 87040; 87430; 96374; 96375; 96376